=== PATIENT | female | born 1955 | race Hispanic/Latino ===

== ENCOUNTER 2022-10-01 10:37 | Inpatient (IN) | payer MEDICARE ==
[2022-09-27 16:29] LABS: BASOPHILS % 0.7 % (0.0-1.0); EOSINOPHILS # (AUTO) 0.2 (0.0-0.4); EOSINOPHILS % 3.8 % (0.0-6.0); HEMATOCRIT 39.9 % (34.2-44.1); HEMOGLOBIN 13.2 g/dL (12.0-16.0); LYMPHOCYTES # (AUTO) 1.6 (1.0-3.2); LYMPHOCYTES % 28.6 % (18.0-39.1); MEAN CORPUSCULAR HGB CONC 33.1 g/dL (31-35); MEAN CORPUSCULAR VOLUME 93.7 fL (81-99); MONOCYTES # (AUTO) 0.5 (0.2-0.8); MONOCYTES % 9.4 % (4.4-11.3); NEUTROPHILS # (AUTO) 3.2 (2.1-6.9); NEUTROPHILS % 57.3 % (38.7-80.0); PLATELET COUNT 151 x10e3/uL (140-360); RED BLOOD COUNT 4.26 x10e6/uL (3.6-5.1); RED CELL DISTRIBUTION WIDTH 13.5 % (11.7-14.4)
[2022-09-27 16:46] LABS: ALBUMIN 3.9 g/dL (3.5-5.0); ALBUMIN/GLOBULIN RATIO 1.2 (0.8-2.0); ANION GAP 13.1 mmol/L (8-16); CALCIUM 9.4 mg/dL (8.4-10.2); CREATININE, SERUM 0.84 mg/dL (0.57-1.11); POTASSIUM 4.1 mmol/L (3.5-5.1)
[~2022-10-01] VITALS: Ht 160 cm; Wt 108.9 kg
[2022-10-01 05:00] VITALS: BP 114/61; PULSE 69; TEMP 97.5; O2SAT 97
[~2022-10-01 10:37] MED LIST: ATORVASTATIN CA10 MG PO; ENALAPRIL-HCTZ1 EAC1 PO; LEVOTHYROXINE50 MCG PO; LISINOPRIL10 MG PO; VITAMIN D3 COM1 EACH PO
[2022-10-01] MEDS ORDERED: LACTATED RINGER'S 1,000 ML ONE (10:44)
[2022-10-01] MEDS ORDERED: ACETAMINOPHEN 1000 MG/100 ML 100 ML IV ONE (12:27)
[2022-10-01] MEDS ORDERED: MANNITOL 20 % 500 ML BAG IV ONE (12:30)
[2022-10-01] MEDS ORDERED: MIDAZOLAM HCL 2 MG/2 ML VIAL ONE (12:35)
[2022-10-01] MEDS ORDERED: FENTANYL CITRATE/PF 100MCG/2 ML INJ ONE (12:35)
[2022-10-01] MEDS ORDERED: PROPOFOL IV EMULSION 10 MG/ML 20 ML VIAL ONE (12:51)
[2022-10-01] MEDS ORDERED: NEOSTIGMINE 1 MG/ML 10ML VIAL ONE (12:51)
[2022-10-01] MEDS ORDERED: GLYCOPYRROLATE INJ 0.2 MG/ML VIAL ONE (12:51)
[2022-10-01] MEDS ORDERED: ONDANSETRON HCL INJ 2MG/ML 2ML 2 MG/ML VIAL ONE (12:51)
[2022-10-01] MEDS ORDERED: DEXAMETHASONE SOD PHOS INJ 4 MG/ML SDV ONE (12:51)
[2022-10-01] MEDS ORDERED: SEVOFLURANE INHAL SOLN 250 ML PEN BTL ONE (12:51)
[2022-10-01] MEDS ORDERED: POVIDONE IODINE 0.05% 0.05 % ML PO ONE (12:51)
[2022-10-01] MEDS ORDERED: ROCURONIUM BROMIDE 10 MG/ML 5ML VIAL IV ONE (12:51)
[2022-10-01] MEDS ORDERED: LIDOCAINE HCL 2% LOCAL INJ 5 ML SDV VIAL INJ ONE (12:51)
[2022-10-01] MEDS ORDERED: ONDANSETRON HCL INJ 2MG/ML 2ML 2 MG/ML VIAL IV PRN (14:30)
[2022-10-01] MEDS ORDERED: DIPHENHYDRAMINE HCL INJ 50 MG/ML VIAL IM PRN (14:30)
[2022-10-01] MEDS ORDERED: NALOXONE HCL INJ 0.4 MG/ML AMP IV PRN (14:30)
[2022-10-01] MEDS: MORPHINE SULFATE 1 MG/ML 30ML PCA IV PRN (14:55)
[2022-10-01 15:20] LABS: BASOPHILS % 0.2 % (0.0-1.0); EOSINOPHILS # (AUTO) 0.1 (0.0-0.4); EOSINOPHILS % 0.8 % (0.0-6.0); HEMATOCRIT 37.7 % (34.2-44.1); HEMOGLOBIN 12.3 g/dL (12.0-16.0); LYMPHOCYTES % 15.5 % (18.0-39.1); MEAN CORPUSCULAR HEMOGLOBIN 30.6 pg (28-32); MEAN CORPUSCULAR HGB CONC 32.6 g/dL (31-35); MEAN CORPUSCULAR VOLUME 93.8 fL (81-99); MONOCYTES # (AUTO) 0.2 (0.2-0.8); MONOCYTES % 3.6 % (4.4-11.3); NEUTROPHILS # (AUTO) 4.9 (2.1-6.9); NEUTROPHILS % 79.6 % (38.7-80.0); PLATELET COUNT 136 x10e3/uL (140-360); RED BLOOD COUNT 4.02 x10e6/uL (3.6-5.1); RED CELL DISTRIBUTION WIDTH 13.2 % (11.7-14.4)
[2022-10-01 15:37] LABS: ANION GAP 15.9 mmol/L (8-16); CALCIUM 8.9 mg/dL (8.4-10.2); CREATININE, SERUM 0.71 mg/dL (0.57-1.11); POTASSIUM 3.9 mmol/L (3.5-5.1)
[2022-10-01 16:30] VITALS: BP 110/62; PULSE 64; RESP 18; TEMP 97.9; O2SAT 97
[2022-10-01] MEDS ORDERED: SODIUM CHLORIDE 0.9% 1000ML 0 ML ONE (16:32)
[2022-10-01] MEDS: SODIUM CHLORIDE 0.9% 250ML IRRIG IR SCH ×2 (16:46→20:36)
[2022-10-01] MEDS: D5.45%NS/KCL 20MEQ 1,000 ML IV SCH (16:47)
[2022-10-01] MEDS ORDERED: ACETAMINOPHEN 1000 MG/100 ML IV PRN (18:00)
[2022-10-01 18:23] VITALS: BP 110/62; PULSE 64; RESP 19; TEMP 97.9; O2SAT 97
[2022-10-01 19:15] VITALS: PULSE 75; RESP 16; O2SAT 95
[2022-10-01 20:00] VITALS: BP 117/63; PULSE 76; RESP 16; TEMP 97.5; O2SAT 94
[2022-10-01 21:00] VITALS: BP 117/63; PULSE 76; RESP 16; TEMP 97.5; O2SAT 94
[2022-10-02] VITALS (10 sets, daily range): BP systolic 106–124; BP diastolic 59–69; PULSE 65–77; RESP 16–20; TEMP 97.1–98.1; O2SAT 93–98
[2022-10-02] MEDS: SODIUM CHLORIDE 0.9% 250ML IRRIG IR SCH ×5 (02:30→18:30)
[2022-10-02] MEDS: MORPHINE SULFATE 1 MG/ML 30ML PCA IV PRN (04:17)
[2022-10-02] MEDS: D5.45%NS/KCL 20MEQ 1,000 ML IV SCH (04:18)
[2022-10-02 06:03] LABS: BASOPHILS % 0.2 % (0.0-1.0); HEMATOCRIT 35.4 % (34.2-44.1); HEMOGLOBIN 11.5 g/dL (12.0-16.0); LYMPHOCYTES # (AUTO) 0.8 (1.0-3.2); LYMPHOCYTES % 12.3 % (18.0-39.1); MEAN CORPUSCULAR HEMOGLOBIN 30.3 pg (28-32); MEAN CORPUSCULAR HGB CONC 32.5 g/dL (31-35); MEAN CORPUSCULAR VOLUME 93.4 fL (81-99); MONOCYTES # (AUTO) 0.6 (0.2-0.8); MONOCYTES % 9.4 % (4.4-11.3); NEUTROPHILS # (AUTO) 4.9 (2.1-6.9); NEUTROPHILS % 77.8 % (38.7-80.0); PLATELET COUNT 133 x10e3/uL (140-360); RED BLOOD COUNT 3.79 x10e6/uL (3.6-5.1)
[2022-10-02 06:37] LABS: ANION GAP 11.3 mmol/L (8-16); CALCIUM 8.6 mg/dL (8.4-10.2); CREATININE, SERUM 0.81 mg/dL (0.57-1.11); POTASSIUM 4.3 mmol/L (3.5-5.1)
[2022-10-02] MEDS ORDERED: LEVOTHYROXINE SODIUM 100 MCG/VIAL IV SCH ×2 (09:00→11:00)
[2022-10-02] MEDS ORDERED: MORPHINE SULFATE 1 MG/ML 30ML PCA IV PRN (09:15)
[2022-10-02] MEDS: SODIUM CHLORIDE 0.9% 1000ML 1,000 ML IV SCH ×2 (10:40→20:39)
[2022-10-03] VITALS (9 sets, daily range): BP systolic 114–135; BP diastolic 57–75; PULSE 74–83; RESP 16–21; TEMP 97.5–99.1; O2SAT 82–98
[2022-10-03 06:10] LABS: BASOPHILS % 0.6 % (0.0-1.0); EOSINOPHILS # (AUTO) 0.2 (0.0-0.4); HEMATOCRIT 34.7 % (34.2-44.1); HEMOGLOBIN 11.3 g/dL (12.0-16.0); LYMPHOCYTES # (AUTO) 1.1 (1.0-3.2); LYMPHOCYTES % 21.1 % (18.0-39.1); MEAN CORPUSCULAR HEMOGLOBIN 30.6 pg (28-32); MEAN CORPUSCULAR HGB CONC 32.6 g/dL (31-35); MONOCYTES # (AUTO) 0.5 (0.2-0.8); MONOCYTES % 9.8 % (4.4-11.3); NEUTROPHILS # (AUTO) 3.5 (2.1-6.9); NEUTROPHILS % 65.1 % (38.7-80.0); PLATELET COUNT 113 x10e3/uL (140-360); RED BLOOD COUNT 3.69 x10e6/uL (3.6-5.1); RED CELL DISTRIBUTION WIDTH 13.2 % (11.7-14.4)
[2022-10-03 06:23] LABS: ANION GAP 10.9 mmol/L (8-16); CALCIUM 8.4 mg/dL (8.4-10.2); CREATININE, SERUM 0.8 mg/dL (0.57-1.11); POTASSIUM 3.9 mmol/L (3.5-5.1)
[2022-10-03] MEDS: SODIUM CHLORIDE 0.9% 1000ML 1,000 ML IV SCH ×2 (07:36→20:43)
[2022-10-03] MEDS ORDERED: ACETAMINOPHEN/CODEINE 300MG - 30MG TAB PO PRN (10:30)
[2022-10-03] MEDS ORDERED: BISACODYL 10 MG SUPP PR ONE (11:00)
[2022-10-03] MEDS: SENNA-S TABLET PO SCH (17:00)
[2022-10-04] VITALS (8 sets, daily range): BP systolic 128–138; BP diastolic 62–72; PULSE 67–79; RESP 16–21; TEMP 97.6–98.6; O2SAT 96–100
[2022-10-04] MEDS: SODIUM CHLORIDE 0.9% 1000ML 1,000 ML IV SCH (04:23)
[2022-10-04 05:47] LABS: BASOPHILS % 0.4 % (0.0-1.0); EOSINOPHILS # (AUTO) 0.1 (0.0-0.4); EOSINOPHILS % 1.9 % (0.0-6.0); HEMATOCRIT 32.4 % (34.2-44.1); HEMOGLOBIN 10.5 g/dL (12.0-16.0); LYMPHOCYTES % 19.6 % (18.0-39.1); MEAN CORPUSCULAR HEMOGLOBIN 30.1 pg (28-32); MEAN CORPUSCULAR HGB CONC 32.4 g/dL (31-35); MEAN CORPUSCULAR VOLUME 92.8 fL (81-99); MONOCYTES # (AUTO) 0.5 (0.2-0.8); MONOCYTES % 10.3 % (4.4-11.3); NEUTROPHILS # (AUTO) 3.3 (2.1-6.9); NEUTROPHILS % 67.6 % (38.7-80.0); PLATELET COUNT 125 x10e3/uL (140-360); RED BLOOD COUNT 3.49 x10e6/uL (3.6-5.1)
[2022-10-04 08:00] LABS: ANION GAP 10.1 mmol/L (8-16); CALCIUM 8.3 mg/dL (8.4-10.2); CREATININE, SERUM 0.71 mg/dL (0.57-1.11)
[2022-10-04 08:01] LABS: POTASSIUM 3.1 mmol/L (3.5-5.1)
[2022-10-04] MEDS ORDERED: Morphine 4mg INJECTION 4 MG/ML INJ IV PRN (09:00)
[2022-10-04] MEDS: SENNA-S TABLET PO SCH ×2 (09:18→16:40)
[2022-10-04] MEDS ORDERED: ONDANSETRON HCL 4 MG ORAL DISINTEGRATING TAB PO PRN (13:15)
[2022-10-05] VITALS (9 sets, daily range): BP systolic 119–144; BP diastolic 57–79; PULSE 64–77; RESP 16–20; TEMP 97.7–98.4; O2SAT 95–100
[2022-10-05] MEDS: LEVOTHYROXINE SODIUM 88 MCG TAB PO SCH (04:54)
[2022-10-05 05:44] LABS: BASOPHILS % 0.5 % (0.0-1.0); EOSINOPHILS # (AUTO) 0.3 (0.0-0.4); HEMATOCRIT 28.5 % (34.2-44.1); HEMOGLOBIN 9.5 g/dL (12.0-16.0); LYMPHOCYTES % 23.7 % (18.0-39.1); MEAN CORPUSCULAR HEMOGLOBIN 30.4 pg (28-32); MEAN CORPUSCULAR HGB CONC 33.3 g/dL (31-35); MEAN CORPUSCULAR VOLUME 91.1 fL (81-99); MONOCYTES # (AUTO) 0.4 (0.2-0.8); MONOCYTES % 9.8 % (4.4-11.3); NEUTROPHILS # (AUTO) 2.6 (2.1-6.9); NEUTROPHILS % 59.5 % (38.7-80.0); PLATELET COUNT 119 x10e3/uL (140-360); RED BLOOD COUNT 3.13 x10e6/uL (3.6-5.1); RED CELL DISTRIBUTION WIDTH 13.1 % (11.7-14.4)
[2022-10-05 06:11] LABS: ANION GAP 13.8 mmol/L (8-16); CALCIUM 7.3 mg/dL (8.4-10.2); CREATININE, SERUM 1.73 mg/dL (0.57-1.11)
[2022-10-05 06:23] LABS: POTASSIUM 2.8 mmol/L (3.5-5.1)
[2022-10-05] MEDS ORDERED: POTASSIUM CHLORIDE 20 MEQ TAB CR PO ONE ×2 (07:00→09:00)
[2022-10-05] MEDS: SENNA-S TABLET PO SCH ×2 (08:16→16:44)
[2022-10-05] MEDS: HYDROCODONE/APAP 7.5MG-325MG 1 EA TAB PO PRN ×2 (13:23→20:45)
[2022-10-05] MEDS: SODIUM CHLORIDE 0.9% 1000ML 1,000 ML IV SCH (14:47)
[2022-10-06] VITALS: BP 125/73; PULSE 76; RESP 17; TEMP 98.2; O2SAT 98
[2022-10-06] MEDS: LEVOTHYROXINE SODIUM 88 MCG TAB PO SCH (04:26)
[2022-10-06 06:25] LABS: CALCIUM 8.6 mg/dL (8.4-10.2); CREATININE, SERUM 0.68 mg/dL (0.57-1.11)
[2022-10-06 06:30] VITALS: PULSE 77; RESP 20; O2SAT 97
[2022-10-06 08:27] VITALS: BP 152/77; PULSE 70; RESP 20; TEMP 98.4; O2SAT 96
[2022-10-06] MEDS: HYDROCODONE/APAP 7.5MG-325MG 1 EA TAB PO PRN ×2 (09:05→14:36)
[2022-10-06] MEDS: SENNA-S TABLET PO SCH (09:05)
[2022-10-06] MEDS: SODIUM CHLORIDE 0.9% 1000ML 1,000 ML IV SCH ×2 (09:05)
[2022-10-06 09:20] VITALS: BP 152/77; PULSE 70; RESP 18; TEMP 98.4; O2SAT 100
[2022-10-06 12:07] VITALS: BP 109/61; PULSE 73; RESP 20; TEMP 98.2; O2SAT 99
== END 2022-10-06 15:58 | disposition home or self-care (01) | DRG 660 ==
LOC: OR 10:37 → PACU V 14:30 → MED/SURG2 16:03
PROVIDERS: ADMIT Internal Medicine; ATTEND Internal Medicine
PROC: 0TT10ZZ Resection of Left Kidney, Open Approach (ICD-10-PCS; principal; 2022-10-01 12:45)
DX: N26.1 Atrophy of kidney (terminal) (principal); Z68.41 Body mass index [BMI] 40.0-44.9, adult; N03.9 Chronic nephritic syndrome with unspecified morphologic changes; E66.01 Morbid (severe) obesity due to excess calories; N17.9 Acute kidney failure, unspecified; N28.1 Cyst of kidney, acquired; I10 Essential (primary) hypertension; E78.5 Hyperlipidemia, unspecified; E03.9 Hypothyroidism, unspecified; D64.9 Anemia, unspecified; Z87.440 Personal history of urinary (tract) infections
CPT/HCPCS: 0223U; 36415; 71045; 71046; 80048; 80053; 83735; 85025; 86850; 86900; 88304; 88307; 93005; 94799; J0690; J1100; J2001; J2250; J2270; J2405; J2710; J7030